=== PATIENT | female | born 1990 | race Caucasian/White ===

== ENCOUNTER → 2016-10-16 | Day surgery (SDC) | payer OTHER ==
[~2016-10-16] VITALS: Ht 162.6 cm; Wt 59.0 kg
[~2016-10-16] MED LIST: LIDOCAINE 2% INJ 100 MG/5 ML SDV (FOR ANES.) As Ordered ONE; LR 1,000 ML IV SCH; MEPERIDINE INJ 25 MG/ML VIAL (J2175) IV PRN; METOCLOPRAMIDE INJ 10MG/2ML VIAL (J2765) IV PRN; MIDAZOLAM INJ 2 MG/2 ML VIAL (J2250) As Ordered ONE; ONDANSETRON 4MG/2ML VIAL (J2405) As Ordered ONE; ONDANSETRON 4MG/2ML VIAL (J2405) IV PRN; PERCOCET 5MG/325MG TAB PO PRN; PROPOFOL 200 MG/20 ML VIAL As Ordered ONE; dexameTHASONE 4 MG/ML 1ML VIAL (J1100) IV ONE; fentaNYL 100 MCG/2 ML INJECTION (J3010) As Ordered ONE; fentaNYL 100 MCG/2 ML INJECTION (J3010) IV PRN; no medications
[2016-10-16 09:04] LABS: CONTROL LINE UCG INT CTR LINE PRESENT
[2016-10-16 12:00] VITALS: BP 137/86
--- NOTE | 2016-10-16 23:06 | RO ---
DATE OF PROCEDURE: 10/16/2016 PREOPERATIVE DIAGNOSIS: Large tonsilliths in both tonsils and tonsil hypertrophy. POSTOPERATIVE DIAGNOSIS: Large tonsilliths in both tonsils and tonsil hypertrophy. OPERATIVE PROCEDURE: Tonsillectomy. SURGEON: Oneil Webb MD [place]ARD[place] CALLER: ANESTHESIA: General. CLINICAL PREAMBLE: This 26-year-old woman presented to the office complaining of large tonsilliths in both tonsils. Physical examination revealed large and cryptic tonsils bilaterally. Management options including tonsillectomy have been discussed. The patient understood and consented to the procedure. DESCRIPTION OF OPERATION: The patient was identified in preholding and brought to the operating room in stable condition. In supine position on the operating room table, the patient received general anesthesia followed orotracheal intubation without incident. The patient was prepped and draped in the usual fashion for the procedure. The Bridgett-Stephan mouth gag was inserted and suspended. The right tonsil was medialized using curved Allis forceps. Mucosal incision was made over the superior pole of the right tonsil. Using the Coblator wand set at 7 for coblation and 3 for coagulation, tonsil capsule was identified and dissection was carried along this plane to excise the right tonsil. The left tonsil was then similarly excised as well. Complete hemostasis was observed for both tonsil beds at the end of the procedure. Estimated blood loss was less than 10 ml. No complication was encountered. Sponge and instrument counts were correct at the end of the procedure. General anesthesia was reversed and the patient was extubated and brought to the recovery room in stable condition. CAITLYN
== END | disposition home or self-care (01) ==
LOC: M SDC 07:46
PROVIDERS: ATTEND Otolaryngology
DX: J35.1 Hypertrophy of tonsils (principal); J35.8 Other chronic diseases of tonsils and adenoids; Z91.018 Allergy to other foods
CPT/HCPCS: 42826; 84703; 88302; J1100; J2250; J2405; J3010